=== PATIENT | female | born 1990 | race Caucasian/White ===

== ENCOUNTER 2022-05-10 15:19 | Emergency (ER) | payer BC ==
[~2022-05-10] VITALS: Ht 160 cm; Wt 68.9 kg
[2022-05-11] MEDS ORDERED: CLARITIN10 MG PO (11:31)
[2022-05-11] MEDS ORDERED: PREDNISONE20 M1 PO (11:31)
[2022-05-11] MEDS ORDERED: PEPCID20 MG PO (11:31)
== END 2022-05-10 17:38 | disposition home or self-care (01) ==
LOC: ED 15:19
DX: R21 Rash and other nonspecific skin eruption (principal); T50.995A Adverse effect of other drugs, medicaments and biological substances, initial encounter; Z88.8 Allergy status to other drugs, medicaments and biological substances; Y92.89 Other specified places as the place of occurrence of the external cause

== ENCOUNTER 2022-05-11 10:43 | Emergency (ER) | payer BC ==
[~2022-05-11] VITALS: Ht 160 cm; Wt 68.9 kg
[2022-05-11] MEDS ORDERED: CLARITIN10 MG PO (11:31)
[2022-05-11] MEDS ORDERED: PEPCID20 MG PO (11:31)
[2022-05-11] MEDS ORDERED: PREDNISONE20 M1 PO (11:31)
== END 2022-05-11 11:45 | disposition home or self-care (01) ==
LOC: ED 10:43
DX: L50.9 Urticaria, unspecified (principal); Z88.8 Allergy status to other drugs, medicaments and biological substances

== ENCOUNTER 2022-09-10 08:26 | Emergency (ER) | payer BC ==
[~2022-09-10] VITALS: Wt 54.4 kg
[~2022-09-10 08:26] MED LIST: CLARITIN10 MG PO; PEPCID20 MG PO; PREDNISONE20 M1 PO
[2022-09-10 09:26] LABS: BASO % 0.4 % (0.0-1.0); EOS # 0.6 10*3/uL (0.0-0.4); EOS % 11.7 % (1.0-4.0); LYMPH # 0.3 10*3/uL (1.3-4.4); LYMPH % 5.3 % (27.0-41.0); MEAN CELL VOLUME 91.4 fl (81.0-99.0); MEAN CORPUSCULAR HGB 30.3 pg (27.0-31.0); MEAN CORPUSCULAR HGB CONC 33.1 g/dl (33.0-37.0); MEAN PLATELET VOLUME 10.6 fl (9.6-12.3); MONO # 0.4 10*3/uL (0.1-1.0); MONO % 7.2 % (3.0-9.0); NEUT # 3.7 10*3/uL (2.3-7.9); NEUT % 75.2 % (47.0-73.0); PLATELET COUNT AUTOMATED 233 10*3/uL (130-400); RED BLOOD COUNT 3.83 10*6/uL (4.10-5.10); RED CELL DISTRI WIDTH 14.6 % (0-14.5); WHITE BLOOD COUNT 4.9 10*3/uL (4.8-10.8)
[2022-09-10] MEDS ORDERED: ESOMEPRAZOLE MA40 M1 PO (09:32)
[2022-09-10] MEDS ORDERED: ONDANSETRON ODT8 MG PO (09:33)
[2022-09-10] MEDS ORDERED: Carafate1 GM/10 ML PO (09:33)
[2022-09-10] MEDS ORDERED: GLYDO11 ML PO (09:34)
[2022-09-10 09:56] LABS: ALKALINE PHOSPHATASE 94 U/L (46-116); BUN 7 mg/dl (9-23); CHLORIDE 104 mmol/L (98-107); POTASSIUM 3.7 mmol/L (3.4-5.1); TOTAL PROTEIN 7.3 gm/dL (6.0-8.0)
[2022-09-10 09:59] LABS: SGPT/ALT < 7 U/L (10-49)
[2022-09-10] MEDS ORDERED: CARAFATE1 G1 PO (11:10)
== END 2022-09-10 11:24 | disposition home or self-care (01) ==
LOC: ED 08:26
PROVIDERS: Emergency Medicine
DX: K20.90 Esophagitis, unspecified without bleeding (principal); Z88.8 Allergy status to other drugs, medicaments and biological substances

== ENCOUNTER → 2024-01-29 | Outpatient (CLI) | payer BC ==
[~2024-01-29] MED LIST changes: +CARAFATE1 G1 PO; +Carafate1 GM/10 ML PO; +ESOMEPRAZOLE MA40 M1 PO; +GLYDO11 ML PO; +ONDANSETRON ODT8 MG PO
== END | disposition home or self-care (01) ==
LOC: LAB 09:53
PROVIDERS: ATTEND Obstetrics & Gynecology
DX: Z31.41 Encounter for fertility testing (principal)